=== PATIENT | female | born 1970 | race Hispanic/Latino ===

== ENCOUNTER 2018-08-25 18:40 | Emergency (ER) | payer SELFPAY ==
[~2018-08-25] VITALS: Ht 154.9 cm; Wt 46.3 kg
--- OUTSIDE RECORDS SUMMARY | 2018-08-25 18:42 | XMS REPORT ---
Author Author [facility] Address Unknown Phone Unavailable Care Team Providers Care Powder Guard Name Role Phone Unavailable Unavailable Problems This patient has no known problems. Allergies, Adverse Reactions, Alerts This patient has no known allergies or adverse reactions. Medications This patient has no known medications. Encounters Start Date/Time End Date/Time Encounter Type Admission Type Attending Clinicians Care Facility Care Department Encounter ID 2018-01-03 02:08:07 2018-01-03 02:08:07 Emergency [facility] [id number]
--- OUTSIDE RECORDS SUMMARY | 2018-08-25 18:42 | XMS REPORT | Clinical Summary ---
Author Author [facility] Organization [facility] Address Unknown Phone Unavailable Care Team Providers Care Device Test Engineer Name Role Phone PCP Unavailable Allergies No Known Allergies Medications No known medications Active Problems Not on file Encounters Care Team Description Date Type Specialty Estefanía Boswell MD Subconjunctival hemorrhage, left (Primary Dx) 01/03/2018 Emergency Emergency Medicine after 08/24/2017 Social History Date Tobacco Use Types Packs/Day Years Used Never Assessed Sex Assigned at Date Recorded Not on file Industry Job Start Date Occupation Not on file Not on file Not on file Travel End Travel History Travel Start No recent travel history available. Last Filed Vital Signs Time Taken Vital Sign Reading 01/03/2018 3:22 AM CDT Blood Pressure 126/74 01/03/2018 3:22 AM CDT Pulse 74 01/03/2018 3:22 AM CDT Temperature 36.7 C (98.1 F) 01/03/2018 3:22 AM CDT Respiratory Rate 18 01/03/2018 3:22 AM CDT Oxygen Saturation 100% - Inhaled Oxygen - Concentration 01/02/2018 7:49 PM CDT Weight 48.9 kg (107 lb 14.4 oz) - Height - - Body Mass Index - Plan of Treatment Health Maintenance Due Date Last Done Comments Cervical Cancer Scrn (3 1989 Yrs) Breast Cancer Scrn 2008 (Yearly) IMM Influenza Seasonal 01/22/2019Jan to June (>/=19 yrs) Results Not on fileafter 08/24/2017
== END 2018-08-25 18:55 | disposition left against medical advice (07) ==
LOC: ER 18:40
DX: R05 Cough (principal)